=== PATIENT | male | born 1950 | race Caucasian/White ===

== ENCOUNTER → 2016-11-06 | Outpatient (CLI) | payer OTHER ==
[~2016-11-06] MED LIST: AMLO-110 PO; ASPEC81 PO; CLC100 PO; ENAL10TA88 PO; FAMO20TA11 PO; PRAV20TA PO; PRCUNK PO; XNX25 PO
--- NOTE | 2016-11-06 14:38 | DIAGNOSTIC IMAGING REPORT ---
[facility]UB CLINICAL HISTORY: Nephrolithiasis. COMPARISON STUDY: CT of the abdomen January 12, 2015. FINDINGS: Note is made of a 6 mm calculus within lower pole of the right kidney. There is a 4 mm calculus within the lower pole of the left kidney. Pelvic calcifications likely reflect prostatic calcifications. No ureteral calculi are identified. IMPRESSION: Bilateral nephrolithiasis. No ureteral calculi identified. Electronically signed by: Franck Amaya M.D. 11/06/2016 2:36 PM Dictated Date/Time: 11/06/2016 2:35 PM
== END | disposition home or self-care (01) ==
LOC: C.RAD 12:12
PROVIDERS: ATTEND Urology
DX: N20.0 Calculus of kidney (principal)

== ENCOUNTER → 2017-05-08 | Outpatient (CLI) | payer OTHER | END | disposition home or self-care (01) | LOC: C.LABSPEC 16:58 | PROVIDERS: ATTEND Urology | DX: R31.29 Other microscopic hematuria (principal) ==